=== PATIENT | female | born 1955 | race Caucasian/White ===

== ENCOUNTER 2018-10-25 00:58 | Inpatient (IN) | payer MEDICARE ==
[~2018-10-25] VITALS: Ht 160 cm; Wt 91.2 kg
[2018-10-25 01:00] VITALS: BP 139/85
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
[2018-10-25] MEDS ORDERED: TEMAZEPAM 7.5 MG CAPSULE PO PRN (01:30)
[2018-10-25] MEDS ORDERED: MAGNESIUM HYDROXIDE 30 ML UDC PO PRN (01:30)
[2018-10-25] MEDS ORDERED: ACETAMINOPHEN 325 MG TABLET PO PRN (01:30)
[2018-10-25] MEDS ORDERED: MAG HYDROX/AL HYDROX/SIMETH 30 ML UDC PO PRN (01:30)
[2018-10-25] MEDS: LORAZEPAM 0.5 MG TABLET PO PRN ×2 (02:15→14:53)
--- NOTE | 2018-10-25 02:15 | NUR ---
GPS RN NOTE, PATIENT HAS A COMPLAINT OF FEELING ANXIOUS AND IS REQUESTING ATIVAN AT THIS TIME. PATIENT VITAL SIGNS ARE STABLE . GAVE ATIVAN 0.5MG PO Q6HR PRN ORDERED. WILL REASSESS FOR ANXIETY AND I WILL CONTINUE TO MONITOR THIS PATIENT.
[2018-10-25] MEDS ORDERED: HYDR-3028 PO (02:21)
[2018-10-25] MEDS ORDERED: QUET100T PO (02:22)
[2018-10-25] MEDS ORDERED: DIAZ10TA4 PO (02:23)
[2018-10-25] MEDS ORDERED: PROP20TA19 PO (02:24)
[2018-10-25] MEDS ORDERED: DULO60CA45 PO (02:25)
[2018-10-25] MEDS ORDERED: PROG100C15 PO (02:26)
[2018-10-25] MEDS ORDERED: CLON1TAB12 PO (02:28)
[2018-10-25] MEDS ORDERED: LEVO25TA7 PO (02:29)
[2018-10-25] MEDS ORDERED: [UNRECOGNIZED DRUG - CODE] NAS (02:37)
[2018-10-25 08:00] VITALS: BP 133/73
--- NOTE | 2018-10-25 08:40 | NUR ---
Patient says, "I never told anyone I was going to kill myself. I let my permit on accident for my gun because of my TBI. I had the gun because I am a thirty year vetaran of [employer]. I am wanting to have my doctor called because I should have never been brought in. Whoever said I was giving things away was lying." Offered assistance with heating up patient breakfast for one minute in microwave. Patient said, "what do you do to help people here, nothing."
[2018-10-25] MEDS: NICOTINE PATCH (14MG) 14 MG PATCH.TD24 TD SCH (09:32)
--- NOTE | 2018-10-25 13:05 | NUR ---
Patient visit with provider to discuss her medication. She could not recall her dosing or medication other than 100mg of seroquel. Provider reconciled medication. Layout Technician attempt to get patient to consent for treatment. Patient refused to Sign. Layout Technician then cosigned patient refusal to sign for treatment with witness. Information faxed to pharmacy.
--- NOTE | 2018-10-25 13:40 | NUR ---
Patient refused physical therapy due to her request to see license of [facility] facility request prior to participation.
--- NOTE | 2018-10-25 14:43 | NUR ---
RN-CO : Notified Snehal Ramirez NP top reconcile home meds.
--- NOTE | 2018-10-25 15:02 | NUR ---
Patient says she wants to have medication. Patient given as needed anxiety medication per her request.
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
[2018-10-25] MEDS ORDERED: diphenhydrAMINE HCL 50 MG/ML VIAL IM STA (15:08)
[2018-10-25] MEDS ORDERED: HALOPERIDOL LACTATE INJ 5 MG/ML VIAL IM STA (15:08)
[2018-10-25] MEDS ORDERED: LORAZEPAM INJ 2 MG/ML VIAL IM STA (15:08)
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
[2018-10-25] MEDS ORDERED: QUETIAPINE FUMARATE 25 MG TABLET PO PRN (15:30)
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
[2018-10-25] MEDS: LEVOTHYROXINE SODIUM 25 MCG TABLET PO SCH (15:59)
[2018-10-25] MEDS: QUETIAPINE FUMARATE 25 MG TABLET PO SCH ×2 (16:00→22:46)
[2018-10-25] MEDS: PROPRANOLOL HCL 10 MG TABLET PO SCH (16:04)
[2018-10-25] MEDS: PROGESTERONE,MICRONIZED 100 MG CAPSULE PO SCH (18:00)
--- NOTE | 2018-10-25 19:32 | NUR ---
Patient endorsed to CAMILA Johnson.
[2018-10-25 20:59] VITALS: BP 143/83
[2018-10-25] MEDS ORDERED: KETOROLAC TROMETHAMINE INJ 30 MG/ML VIAL ONE (22:30)
--- NOTE | 2018-10-26 07:24 | NUR ---
PATIENT REFUSED PRN TORADOL 30MG IM. DURING ATTEMPT TO RETURN TO [facility], MEDICATION ACCIDENTLY DROPPED ON FLOOR AND CRACKED. MEDICATION WASTED AND WITNESSED BY CHARGE NURSE AND ANOTHER RN.
[2018-10-26 08:00] VITALS: BP 154/94
[2018-10-26 08:21] LABS: BASOPHILS # (AUTO) 0.1 /CMM (0.0-0.2); BASOPHILS % (AUTO) 1.2 % (0.0-2.0); EOSINOPHILS % (AUTO) 2.2 % (0.0-6.0); HEMATOCRIT 42 % (33-45); HEMOGLOBIN 13.9 g/dL (11.5-14.8); LYMPHOCYTES # (AUTO) 1.8 /CMM (0.8-4.8); LYMPHOCYTES % (AUTO) 32.8 % (20.0-44.0); MEAN CORPUSCULAR HGB CONC 33 g/dl (31.0-36.0); MEAN CORPUSCULAR VOLUME 89 fL (82-100); MONOCYTES # (AUTO) 0.6 /CMM (0.1-1.30); NEUTROPHILS # (AUTO) 2.9 /CMM (1.8-8.9); NEUTROPHILS % (AUTO) 52.8 % (43.0-81.0); PLATELET COUNT (AUTO) 304 /CMM (150-450); RED BLOOD CELL COUNT(AUTO) 4.67 MIL/uL (4.0-5.2); WHITE BLOOD COUNT (AUTO) 5.5 K/uL (4.3-11.0)
[2018-10-26] MEDS: PROPRANOLOL HCL 10 MG TABLET PO SCH ×2 (08:28→20:32)
[2018-10-26] MEDS: QUETIAPINE FUMARATE 25 MG TABLET PO SCH ×3 (08:28→21:24)
[2018-10-26] MEDS: LEVOTHYROXINE SODIUM 25 MCG TABLET PO SCH (08:28)
[2018-10-26] MEDS: NICOTINE PATCH (14MG) 14 MG PATCH.TD24 TD SCH (08:28)
[2018-10-26 08:52] LABS: CHOLESTEROL 158 mg/dL (<200); HDL CHOLESTEROL 62 mg/dL (40-60); LDL 81 mg/dL (0-99); TRIGLYCERIDES 101 mg/dL (30-150)
[2018-10-26 08:55] LABS: ALBUMIN 3.6 g/dL (3.4-5.0); BILIRUBIN,TOTAL 0.3 mg/dL (0.2-1.0); CALCIUM, SERUM 8.8 mg/dL (8.5-10.1); CREATININE 0.8 mg/dL (0.6-1.3); MAGNESIUM 1.9 mg/dL (1.8-2.4); POTASSIUM 4.3 mmol/L (3.5-5.1); TOTAL PROTEIN, SERUM 6.9 g/dL (6.4-8.2)
[2018-10-26] MEDS: KETOROLAC TROMETHAMINE INJ 30 MG/ML VIAL IM PRN ×2 (11:02→18:26)
--- NOTE | 2018-10-26 11:02 | NUR ---
RN NOTES ADMINISTERED TORADOL 30 ML IM LEFT UPPER DELTOID AREA FOR LOWER CHRONIC PAIN 02/25 PER PATIENT REQUEST, V/S TAKEN BP-132/72, P-67, CONTINUED MONITORING.
[2018-10-26] MEDS ORDERED: KETOROLAC TROMETHAMINE 10 MG TABLET PO PRN (11:30)
[2018-10-26] MEDS: clonazePAM 0.5 MG TABLET PO PRN (11:48)
--- NOTE | 2018-10-26 11:48 | NUR ---
RN NOTES ADMINISTERED KLONOPIN 0.5 MG PO PRN FOR ANXIETY PER PATIENT REQUEST, V/S TAKEN BP132/72, P-78, CONTINUED MONITORING.
--- NOTE | 2018-10-26 14:58 | NUR ---
GROUP NOTE: SW promoted pt to attend group therapy 10/27/18 at 2:00pm pt refused to attend as she is paranoid and delusional and thinks that the staff is torturing pts.
--- NOTE | 2018-10-26 15:13 | NUR ---
RN-CO: Patient noted that she is still has pressured speech while conversing with Dr Gutiérrez. She is entitled and repeatedly asking Dr Gutiérrez when is she going to be discharge. She is paranoid and suspicious to staff. Verbally abusive and calling staff names. Patient is argumentative, threatening to cr the hospital.
--- NOTE | 2018-10-26 15:14 | NUR ---
Initial Discharge Plan: Pt currently rents a room in a house located at [address] [place] [address], [place] [address]; ([phone]). Per pt, she is in the middle of changing her living situation. SW will work with the pt and the MD regarding appropriate discharge planning. SW will form a safe and proper discharge.
[2018-10-26 16:00] VITALS: BP 147/85
[2018-10-26] MEDS: PROGESTERONE,MICRONIZED 100 MG CAPSULE PO SCH (16:18)
--- NOTE | 2018-10-26 18:26 | NUR ---
RN NOTES ADMINISTERED SEROQUEL 25 MG PO PRN FOR ANXIETY, AND TORADOL 30 MG/ML IM RIGHT DELTOID AREA FOR PAIN 7/10 LOWER BACK. CONTINUED MONITORING.
[2018-10-26 20:13] VITALS: BP 147/81
[2018-10-27] MEDS ORDERED: KETOROLAC TROMETHAMINE INJ 30 MG/ML VIAL ONE (01:49)
[2018-10-27] MEDS: KETOROLAC TROMETHAMINE INJ 30 MG/ML VIAL IM PRN ×2 (01:54→01:55)
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
[2018-10-27 08:00] VITALS: BP 140/80
[2018-10-27] MEDS: NICOTINE PATCH (14MG) 14 MG PATCH.TD24 TD SCH (09:00)
[2018-10-27] MEDS: PROPRANOLOL HCL 10 MG TABLET PO SCH (09:15)
[2018-10-27] MEDS: LEVOTHYROXINE SODIUM 25 MCG TABLET PO SCH (09:16)
[2018-10-27] MEDS: QUETIAPINE FUMARATE 25 MG TABLET PO SCH ×2 (09:16→16:28)
[2018-10-27] MEDS: clonazePAM 0.5 MG TABLET PO PRN ×2 (09:16→16:27)
--- NOTE | 2018-10-27 09:18 | NUR ---
WOUND CARE CONSULT: PT ALLOWED LIMITED ASSESSMENT OF RT ARM DRY ABRASION. NO REDNESS OR DRAINAGE NOTED. AREA NOT PALPATED DUE TO PT REFUSAL. PT IS AMBULATORY AND CONTINENT. WILL SEE PRN.
--- NOTE | 2018-10-27 10:10 | NUR ---
SW spoke to the pt and asked her what needs she had that were not being met. SW stated that she is available and will assist her in any way. She stated that she wanted basic essentials such as toothpaste, toothbrush, mouth wash, etc. SW provided her with all of those needs.
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
--- NOTE | 2018-10-27 11:20 | NUR ---
Pt approached the SW and stated that she wanted to take a shower but that she is in need of underwear and socks. SW provided her with those items.
[2018-10-27] MEDS ORDERED: IBUPROFEN 400 MG TABLET PO PRN (13:30)
--- NOTE | 2018-10-27 15:45 | NUR ---
DANIA called the pts friend, Holly ([phone]), and informed her about the pts situation regarding placement. She stated that she cannot help the pt at this time.
[2018-10-27 16:00] VITALS: BP 166/96
--- NOTE | 2018-10-27 16:20 | NUR ---
DANIA called the pts friend, Altagracia Tucker ([phone]), and discussed the pts discharge plan with her. She stated that she understands that the pt is in between two placements at this time and that she is in need of fci. Pts friend stated that the pt can live with her at [address] [place] [address].
--- NOTE | 2018-10-27 16:22 | NUR ---
DANIA called Danielutetamt Vivek Louie ([phone]) and informed him that the pt is going to be discharged today. He took down the information of where the pt is being discharged to and completed his report. It was confirmed that the pts gun has been confiscated.
--- NOTE | 2018-10-27 16:27 | NUR ---
Discharge Note: Pt was discharged to her friend, Juan ([phone]) house, located at [address] [place] [address]. Pt ordered an Uber to her car and then drove from there to her friends house at around 5pm. Upon discharge, the pt appeared to be in a euthymic mood and presented with a distressed affect. Pt stated that she was upset by the way that she was treated in the hospital and stated that she was admitted for a misunderstanding. Pt denied both suicidal and homicidal ideation as well as auditory and visual hallucinations. Pt signed the homeless waiver and was provided with resources to clinics, food [place], substance use and shelters. Pt will be under the care of her psychiatrist, Dr. Kwok, located at [address], [place] [address]; ; a fax was sent to: [phone]. Pt will also be under the care of her optical element coater, Dr. Caleb Kerr, located at [address], [place] [address]; .
--- NOTE | 2018-10-27 16:50 | NUR ---
HEAD RESIDENT NOTES 63 YEAR OLD FEMALE PATIENT WAS DISCHARGE TO HER FRIEND IN STABLE CONDITION, COMPLIANT W/ MEDICATION,COOPERATIVE W/ TREATMENT PLAN. PATIENT DENIES SI/HI AND INSTRUCTED TO GO TO THE NEAREST ER IF DEVELOPING SI/HI. BEHAVIOR IMPROVED PSYCHIATRIC PLANS MET,MEDICAL TX PLANS DEFERRED FOR CONTINUAL MONITORING.EDUCATED PT ABOUT AFTER CARE PLAN. RETURNED PERSONAL BELONGING TO PATIENT. MEDICATION RECONCILED W/ PSYCHIATRIST AND MED INT. PATIENT REFUSED TO TAKE PICTURE TO HER ARM AND REFUSED TO SIGN DISCHARGE PAPERS AND BELONGING LIST, SO HURRY TO GO HOME, LEFT UNIT VIA TAXI, SECURITY IS PRESENT AT THE TIME OF DISCHARGE.
--- NOTE | 2018-10-28 09:11 | NUR ---
Group Note: Pt attended group therapy on 10/27/18 at 2pm discussing the topic of their goals in areas of both their hospitalization and their personal life. S: Pt stated, I want to find a place to live because I have multiple options right now and I want to be able to get back into my rehabilitation program so that I can get back to my original state. I obviously will remain compliant with my medications and therapy because that has what has keep me functioning so well for so long. I know that losing my temper is what caused me to be admitted this time. O: Pt was present during the group session and was engaged. Pt appeared to be in a euthymic mood and presented with a calm affect. Pt maintained appropriate eye contact and had an appropriate tone of voice. A: Pt expressed that she understands that she can no longer manage her anger after everything that has been happening to her these past few years that have been difficult for her. She expressed that she is in therapy and that she may have to begin addressing her anger in therapy so that an event like this hospitalization does not occur again and so that she no longer loses control. Pt came to the understanding of what is considered manageable and appropriate behavior. P: Pt will continue milieu treatment and medication stabilization.
== END 2018-10-27 17:15 | disposition home or self-care (01) | DRG 885 ==
LOC: UNDOADMIN 00:58 → GPS 00:58
PROVIDERS: ADMIT Psychiatry & Neurology Psychosomatic Medicine
DX: F25.0 Schizoaffective disorder, bipolar type (principal); R45.851 Suicidal ideations; F41.9 Anxiety disorder, unspecified; E03.9 Hypothyroidism, unspecified; F09 Unspecified mental disorder due to known physiological condition; I10 Essential (primary) hypertension; F19.90 Other psychoactive substance use, unspecified, uncomplicated; G89.29 Other chronic pain; G43.909 Migraine, unspecified, not intractable, without status migrainosus; Z87.820 Personal history of traumatic brain injury; E66.01 Morbid (severe) obesity due to excess calories; Z68.35 Body mass index [BMI] 35.0-35.9, adult; G31.84 Mild cognitive impairment of uncertain or unknown etiology
CPT/HCPCS: 36415; 80053-TC; 80061-TC; 83735-TC; 84100-TC; 84439-TC; 85025-TC; 87081-TC; 97116-TC; 97530-TC; J1200; J1630; J1885; J2060